=== PATIENT | male | born 1960 | race Caucasian/White ===

== ENCOUNTER 2020-04-19 01:20 | Emergency (ER) | payer BC ==
[~2020-04-19] VITALS: Ht 182.9 cm; Wt 115.7 kg
[~2020-04-19 01:20] MED LIST: DULCOLAX5 MG PO; EXCEDRIN CAPLE1 EACH PO; GLUCOPHAGE500 MG PO; PAXIL40 MG PO; SYNTHROID PO
[2020-04-19 01:57] LABS: ABSOLUTE EOSINOPHILS 0.2 thou/uL (0.0-0.7); ABSOLUTE LYMPHOCYTES 1.5 thou/uL (0.8-5.3); ABSOLUTE MONOCYTES 0.6 thou/uL (0.0-1.2); ABSOLUTE NEUTROPHILS 7.3 thou/uL (1.6-8.1); BASOPHILS 0.2 %; EOSINOPHILS 1.6 %; HEMOGLOBIN 15.8 gm/dL (14.0-18.0); LYMPHOCYTES 15.5 %; MCH 30.2 pg (26.0-34.0); MCV 86.4 fL (80.0-100.0); MONOCYTES 6.6 %; MPV 7.9 fl. (7.2-11.1); NUCLEATED RBCS 0 /100WBC; PLATELET COUNT* 138 thou/uL (150-400); POLYS 76.1 %; RBC 5.21 mil/uL (4.50-6.00); RDW-CV 12.4 % (10.5-14.5); WBC 9.6 thou/uL (4.0-11.0)
[2020-04-19 02:08] LABS: CREATININE 1.3 mg/dL (0.6-1.3); POTASSIUM 3.9 mmol/L (3.5-5.1)
[2020-04-19] MEDS ORDERED: HYDROCODON-ACE1 EAC8 PO (03:44)
[2020-04-19] MEDS ORDERED: FLEXERIL PO (03:44)
[2020-04-19 03:52] VITALS: BP 120/78
== END 2020-04-19 03:55 | disposition home or self-care (01) ==
LOC: M.ERS 01:20
PROVIDERS: Emergency Medicine
DX: M79.10 Myalgia, unspecified site (principal); M54.5 Low back pain; E03.9 Hypothyroidism, unspecified; E11.9 Type 2 diabetes mellitus without complications; Z79.899 Other long term (current) drug therapy